=== PATIENT | female | born 2005 | race African-American/Black ===

== ENCOUNTER 2025-02-17 22:35 | Emergency (ER) | payer MEDICAID ==
[~2025-02-17] VITALS: Ht 165.1 cm; Wt 110.0 kg
[2025-02-17 22:42] VITALS: O2SAT 98
[2025-02-18] MEDS: ACETAMINOPHEN 325MG TABLET PO ONE (01:02)
[2025-02-18] MEDS ORDERED: TOPUD MT (02:41)
[2025-02-18 03:03] VITALS: BP 114/67; PULSE 70; RESP 18; TEMP 37.1; O2SAT 100
== END 2025-02-18 03:10 | disposition home or self-care (01) ==
LOC: ER 22:35
DX: R51.9 Headache, unspecified (principal); Z91.040 Latex allergy status
CPT/HCPCS: 99284